=== PATIENT | female | born 1990 | race African-American/Black ===

== ENCOUNTER 2018-10-23 21:29 | Emergency (ER) | payer OTHER ==
[~2018-10-23] VITALS: Ht 165.1 cm; Wt 113.4 kg
[2018-10-23] MEDS ORDERED: NOHOMEMEDICATIONS (21:45)
[2018-10-23 22:24] LABS: ABSOLUTE EOSINOPHILS 0.2 thou/uL (0.0-0.7); ABSOLUTE LYMPHOCYTES 2.8 thou/uL (0.8-5.3); ABSOLUTE MONOCYTES 0.7 thou/uL (0.0-1.2); BASOPHILS 0.5 %; EOSINOPHILS 1.8 %; HEMOGLOBIN 11.5 gm/dL (12.0-15.0); LYMPHOCYTES 32.4 %; MCV 78.3 fL (80.0-100.0); MONOCYTES 8.1 %; MPV 9.3 fl. (7.2-11.1); NUCLEATED RBCS 0 /100WBC; PLATELET COUNT* 248 thou/uL (150-400); POLYS 57.2 %; RDW-CV 15.3 % (10.5-14.5); WBC 8.7 thou/uL (4.0-11.0)
[2018-10-23 22:32] LABS: ANION GAP 9 mmol/L (7-16); BUN 17 mg/dL (7-18); CALCIUM 8.1 mg/dL (8.5-10.1); CHLORIDE 100 mmol/L (98-107); CO2 27 mmol/L (21-32); CREATININE 1.1 mg/dL (0.6-1.3); GLUCOSE 94 mg/dL (70-99); SODIUM 136 mmol/L (136-145)
[2018-10-23 22:41] LABS: ALBUMIN 3.6 g/dL (3.4-5.0); ALKALINE PHOSPHATASE 92 U/L (46-116); SGOT 11 U/L (15-37); SGPT 27 U/L (30-65); TOTAL BILIRUBIN 0.5 mg/dL (<0.1-1.0); TOTAL PROTEIN 8.3 g/dL (6.4-8.2); TROPONIN-I LEVEL <0.06 ng/mL (<0.06)
[2018-10-24] MEDS ORDERED: NORCO 5-325 TA1 EAC1 PO (02:05)
[2018-10-24 02:13] VITALS: BP 133/77
--- NOTE | 2018-10-25 10:27 | EKG ---
[place] [address] ELECTROCARDIOGRAM REPORT Name: MARTA WINTERS Room: [facility]#: [id number] Admission: 10/23/18 Attend Phys: Discharge: 10/24/18 Date of : 89 Report #: [id number] THIS REPORT FOR: //name// [facility] ED Test Date: 2018-10-23 Test Time: 22:10:45 Pat Name: MARTA WINTERS Department: Room: Gender: F [employer] Machine Operator: JOSE G : 1990 Requested By: Usama Aguirre Order Number: [id number] MD: Walter Arce Measurements Intervals Maple Rate: 86 P: 24 NM: 150 QRS: 12 QRSD: 94 T: 70 QT: 367 QTc: 439 Interpretive Statements Sinus rhythm Borderline T wave abnormalities No previous ECG available for comparison Electronically Signed On 10-25-2018 10:27:07 CDT by Walter Arce [email or web address] <ELECTRONICALLY SIGNED> By: Walter Arce MD, [facility] 10/25/18 1027 2210 2210 Walter Arce MD, FAC /EPI
== END 2018-10-24 02:13 | disposition home or self-care (01) ==
LOC: M.ERS 21:29
PROVIDERS: Emergency Medicine Emergency Medical Services
DX: R42 Dizziness and giddiness (principal); R07.89 Other chest pain; I10 Essential (primary) hypertension; Z86.2 Personal history of diseases of the blood and blood-forming organs and certain disorders involving the immune mechanism